=== PATIENT | female | born 1960 | race Two or more races ===

== ENCOUNTER 2021-07-17 14:22 | Emergency (ER) | payer OTHER ==
[~2021-07-17] VITALS: Ht 167.6 cm; Wt 68.0 kg
== END 2021-07-17 18:14 | disposition home or self-care (01) ==
LOC: ER 14:22
DX: S01.01XA Laceration without foreign body of scalp, initial encounter (principal); S06.0X0A Concussion without loss of consciousness, initial encounter; W18.2XXA Fall in (into) shower or empty bathtub, initial encounter; Y93.89 Activity, other specified; Y92.59 Other trade areas as the place of occurrence of the external cause; Y99.8 Other external cause status